=== PATIENT | female | born 1940 | race Hispanic/Latino ===

== ENCOUNTER 2017-05-29 18:27 | Inpatient (IN) | payer MEDICARE, OTHER ==
[~2017-05-29] VITALS: Ht 154.9 cm; Wt 57.6 kg
[~2017-05-29 18:27] MED LIST: AMLO5TAB2 PO; ASPI81TA40 PO; CALC-190 PO; DOXA4TAB3 PO; FOLI0.8T2 PO; GABA-529 PO; LOVA20TA3 PO; METO25TA6 PO; PANT40TA25 PO
[2017-05-29 18:58] LABS: BASOPHILS % (AUTO) 0.3 % (0.0-5.0); EOSINOPHILS % (AUTO) 2.4 % (0.0-8.0); HEMATOCRIT 27.5 % (36-48); LYMPHOCYTES % (AUTO) 4.7 % (21.0-51.0); MEAN CORPUSCULAR HEMOGLOBIN 32.4 pg (27.0-33.0); MEAN CORPUSCULAR HGB CONC 34.8 g/dL (32.0-36.0); MEAN CORPUSCULAR VOLUME 93.1 fL (79-99); MONOCYTES % (AUTO) 5.6 % (3.0-13.0); PLATELET COUNT (AUTO) 72 K/uL (130-400); RED BLOOD CELL COUNT(AUTO) 2.95 MIL/uL (4.00-5.50); RED CELL DISTRIBUTION WIDTH 17.9 % (11.0-15.5)
[2017-05-29 19:08] LABS: CREATININE 6.8 mg/dL (0.5-1.5); POTASSIUM 4.4 mmol/L (3.5-5.1)
[2017-05-29 19:13] LABS: ALBUMIN 3.1 g/dL (3.5-5.0); BILIRUBIN,TOTAL 0.8 mg/dL (0.2-1.0); TOTAL PROTEIN, SERUM 7.1 g/dL (6.0-8.3)
[2017-05-29] MEDS ORDERED: ACETAMINOPHEN 325 MG TAB ONE (19:15)
[2017-05-29] MEDS ORDERED: IPRATROPIUM/ALBUTEROL SULFATE 3 ML SOLUTION IH ONE (19:24)
[2017-05-29] MEDS ORDERED: AZITHROMYCIN 500MG+NS 250ML 250 ML IV ONE (20:45)
[2017-05-30] MEDS ORDERED: ONDANSETRON HCL 4 MG/2 ML VIAL IV PRN (02:15)
[2017-05-30] MEDS ORDERED: HYDRALAZINE HCL 20 MG/ML VIAL IV PRN (02:15)
[2017-05-30] MEDS: AZITHROMYCIN 500MG+NS 250ML 250 ML IV SCH (03:00)
[2017-05-30 04:22] LABS: BASOPHILS % (AUTO) 0.8 % (0.0-5.0); EOSINOPHILS % (AUTO) 2.7 % (0.0-8.0); HEMATOCRIT 29.2 % (36-48); LYMPHOCYTES % (AUTO) 12.8 % (21.0-51.0); MEAN CORPUSCULAR HEMOGLOBIN 31.5 pg (27.0-33.0); MEAN CORPUSCULAR HGB CONC 33.8 g/dL (32.0-36.0); MEAN CORPUSCULAR VOLUME 93.2 fL (79-99); MONOCYTES % (AUTO) 3.9 % (3.0-13.0); NEUTROPHILS % (AUTO) 79.8 % (40.0-77.0); PLATELET COUNT (AUTO) 60 K/uL (130-400); RED BLOOD CELL COUNT(AUTO) 3.13 MIL/uL (4.00-5.50); RED CELL DISTRIBUTION WIDTH 17.7 % (11.0-15.5); WHITE BLOOD COUNT (AUTO) 4.9 K/uL (4.8-10.8)
[2017-05-30 04:41] LABS: CREATININE 6.8 mg/dL (0.5-1.5); POTASSIUM 4.3 mmol/L (3.5-5.1)
[2017-05-30] MEDS ORDERED: IPRATROPIUM/ALBUTEROL SULFATE 3 ML SOLUTION IH ONE ×2 (05:56→10:12)
[2017-05-30] MEDS: HEPARIN SODIUM 5000UNIT/ML 1ML VIAL SQ SCH ×3 (06:00→21:22)
[2017-05-30] MEDS: IPRATROPIUM/ALBUTEROL SULFATE 3 ML SOLUTION IH SCH ×4 (06:03→22:00)
[2017-05-30] MEDS ORDERED: GUAIFENESIN-DM 200/20 MG 10 ML ONE (06:59)
[2017-05-30] MEDS ORDERED: FAMOTIDINE 20MG TAB 20 MG TAB PO SCH (09:00)
[2017-05-30] MEDS ORDERED: HEPARIN SODIUM 5000UNIT/ML 1ML VIAL ONE ×2 (09:32→16:16)
[2017-05-30] MEDS ORDERED: FAMOTIDINE 20MG TAB 20 MG TAB ONE (09:32)
[2017-05-30 17:21] VITALS: BP 138/66
[2017-05-30] MEDS: GUAIFENESIN-DM 200/20 MG 10 ML PO PRN ×2 (18:01→23:45)
[2017-05-30 19:00] VITALS: BP 106/52
[2017-05-30] MEDS ORDERED: 0.9% SODIUM CHLORIDE 250 ML IV BAG IV PRN (19:00)
[2017-05-30] MEDS ORDERED: SODIUM CHLORIDE 0.9% 1000ML 1,000 ML IV PRN (19:00)
[2017-05-30] MEDS ORDERED: ALBUMIN (HUMAN) 25% 100 ML IV PRN (19:00)
[2017-05-30] MEDS: ACETAMINOPHEN 325 MG TAB PO PRN (19:05)
[2017-05-30] MEDS ORDERED: METOPROLOL TARTRATE 25 MG TAB PO SCH (21:00)
[2017-05-30] MEDS: EPOETIN ALFA 3,000 UNIT/ML ML SQ NR (21:21)
[2017-05-30] MEDS ORDERED: IPRATROPIUM 0.5 MG/2.5 ML INH IH ONE (22:56)
[2017-05-30] MEDS: IPRATROPIUM 0.5 MG/2.5 ML INH IH SCH (22:58)
[2017-05-30 23:00] VITALS: BP 103/52
[2017-05-31] MEDS: IPRATROPIUM 0.5 MG/2.5 ML INH IH SCH ×6 (02:43→22:13)
[2017-05-31] MEDS: AZITHROMYCIN 500MG+NS 250ML 250 ML IV SCH (03:12)
[2017-05-31 04:23] VITALS: BP 95/50
[2017-05-31 04:44] LABS: HEMATOCRIT 29.6 % (36-48); MEAN CORPUSCULAR HEMOGLOBIN 31.6 pg (27.0-33.0); MEAN CORPUSCULAR VOLUME 92.9 fL (79-99); PLATELET COUNT (AUTO) 50 K/uL (130-400); RED BLOOD CELL COUNT(AUTO) 3.19 MIL/uL (4.00-5.50); RED CELL DISTRIBUTION WIDTH 17.9 % (11.0-15.5)
[2017-05-31] MEDS: GUAIFENESIN-DM 200/20 MG 10 ML PO PRN (05:01)
[2017-05-31 05:02] LABS: CREATININE 4.8 mg/dL (0.5-1.5); PHOSPHORUS 3.2 mg/dL (2.5-4.9); POTASSIUM 4.3 mmol/L (3.5-5.1)
[2017-05-31] MEDS: HEPARIN SODIUM 5000UNIT/ML 1ML VIAL SQ SCH ×2 (05:02→13:21)
[2017-05-31] MEDS: ACETAMINOPHEN 325 MG TAB PO PRN (05:02)
[2017-05-31 05:41] LABS: BAND NEUTROPHILS % (MANUAL) 5 % (0-2); BASOPHILS % (MANUAL) 5 % (0-2); EOSINOPHILS % (MANUAL) 4 % (1-6); LYMPHOCYTES % (MANUAL) 23 % (22-44); MONOCYTES % (MANUAL) 5 % (2-9); SEGMENTED NEUTROPHILS % 58 % (40-70)
[2017-05-31 05:42] LABS: MAN.DIFF COMMENT-IMPRESSION MANUAL DIFFERENTIAL; PLATELET MORPHOLOGY COMMENT DECREASED
[2017-05-31 07:35] VITALS: BP 96/59
[2017-05-31] MEDS ORDERED: AMLODIPINE BESYLATE 5 MG TAB PO SCH (09:00)
[2017-05-31] MEDS: Lovastatin 20 MG PO SCH (09:00)
[2017-05-31] MEDS: FOLIC ACID/VITAMIN B COMP W-C 1 MG CAPSULE PO SCH (10:49)
[2017-05-31] MEDS: GABAPENTIN 100 MG CAPSULE PO SCH (10:49)
[2017-05-31] MEDS: PANTOPRAZOLE SODIUM 40 MG TABLET.DR PO SCH (10:49)
[2017-05-31] MEDS: ASPIRIN 81 MG EC TAB PO SCH (10:49)
[2017-05-31 12:00] VITALS: BP 94/48
[2017-05-31] MEDS: EPOETIN ALFA 3,000 UNIT/ML ML SQ NR (13:20)
[2017-05-31 16:00] VITALS: BP 95/48
[2017-05-31 20:00] VITALS: BP 112/52
[2017-06-01] VITALS: BP 120/64
[2017-06-01] MEDS: IPRATROPIUM 0.5 MG/2.5 ML INH IH SCH ×4 (02:00→14:09)
[2017-06-01] MEDS: AZITHROMYCIN 500MG+NS 250ML 250 ML IV SCH (03:06)
[2017-06-01 04:00] VITALS: BP 112/75
[2017-06-01] MEDS ORDERED: EPOETIN ALFA 3,000 UNIT/ML ML SQ SCH (06:17)
[2017-06-01 08:00] VITALS: BP 135/70
[2017-06-01] MEDS: Lovastatin 20 MG PO SCH (09:00)
[2017-06-01] MEDS: GABAPENTIN 100 MG CAPSULE PO SCH (10:02)
[2017-06-01] MEDS: PANTOPRAZOLE SODIUM 40 MG TABLET.DR PO SCH (10:02)
[2017-06-01] MEDS: FOLIC ACID/VITAMIN B COMP W-C 1 MG CAPSULE PO SCH (10:02)
[2017-06-01] MEDS: ASPIRIN 81 MG EC TAB PO SCH (10:02)
[2017-06-01 11:30] VITALS: BP 122/61
[2017-06-01] MEDS ORDERED: AZIT250T9 PO (13:20)
== END 2017-06-01 16:35 | disposition home or self-care (01) | DRG 193 ==
LOC: EDH 18:27 → EDHIP 05-30 02:14 → 3CH 05-30 17:14
PROVIDERS: ADMIT Family Medicine; ATTEND Family Medicine
PROC: 5A1D70Z Performance of Urinary Filtration, Intermittent, Less than 6 Hours Per Day (ICD-10-PCS; principal; 2017-05-30)
PROC: 5A1D70Z Performance of Urinary Filtration, Intermittent, Less than 6 Hours Per Day (ICD-10-PCS; 2017-06-01)
DX: J18.9 Pneumonia, unspecified organism (principal); N18.6 End stage renal disease; E87.2 Acidosis; I12.0 Hypertensive chronic kidney disease with stage 5 chronic kidney disease or end stage renal disease; Q61.3 Polycystic kidney, unspecified; Z94.0 Kidney transplant status; Z72.0 Tobacco use; Z82.71 Family history of polycystic kidney; Z90.710 Acquired absence of both cervix and uterus; Z99.2 Dependence on renal dialysis; Z88.1 Allergy status to other antibiotic agents; Z98.51 Tubal ligation status
CPT/HCPCS: 36415; 71046; 80048; 80053; 82948; 83605; 84100; 85025; 87040; 87804; 90935; 94640; 94664; 99291; J0456; J1644; J7030

== ENCOUNTER 2017-07-21 23:27 | Inpatient (IN) | payer OTHER ==
[~2017-07-21] VITALS: Ht 152.4 cm; Wt 54.8 kg
[~2017-07-21 23:27] MED LIST changes: +AZIT250T9 PO
[2017-07-22 01:26] LABS: EOSINOPHILS % (AUTO) 6.9 % (0.0-8.0); HEMATOCRIT 28.7 % (36-48); LYMPHOCYTES % (AUTO) 14.5 % (21.0-51.0); MEAN CORPUSCULAR HEMOGLOBIN 31.9 pg (27.0-33.0); MEAN CORPUSCULAR HGB CONC 34.2 g/dL (32.0-36.0); MEAN CORPUSCULAR VOLUME 93.1 fL (79-99); MONOCYTES % (AUTO) 12.6 % (3.0-13.0); PLATELET COUNT (AUTO) 63 K/uL (130-400); RED BLOOD CELL COUNT(AUTO) 3.08 MIL/uL (4.00-5.50); RED CELL DISTRIBUTION WIDTH 16.5 % (11.0-15.5); WHITE BLOOD COUNT (AUTO) 3.9 K/uL (4.8-10.8)
[2017-07-22 01:41] LABS: CREATININE 5.8 mg/dL (0.5-1.5); POTASSIUM 4.1 mmol/L (3.5-5.1)
[2017-07-22 01:46] LABS: ALBUMIN 2.8 g/dL (3.5-5.0); BILIRUBIN,TOTAL 0.6 mg/dL (0.2-1.0); TOTAL PROTEIN, SERUM 6.4 g/dL (6.0-8.3)
[2017-07-22] MEDS ORDERED: HYDRALAZINE HCL 20 MG/ML VIAL IV PRN (03:45)
[2017-07-22] MEDS ORDERED: OSELTAMIVIR PHOSPHATE 75 MG CAP PO SCH (09:00)
[2017-07-22 16:49] VITALS: BP 128/59
[2017-07-22] MEDS ORDERED: COMPOUND PO MISCELLANEOUS 1 EACH MISC MISC PRN (17:00)
[2017-07-22] MEDS ORDERED: CALC667C10 PEG (17:22)
[2017-07-22] MEDS ORDERED: VITA400C70 PO (17:22)
[2017-07-22] MEDS: OSELTAMIVIR SUSP 15 MG/ML (6 CAPS/29ML) PO SCH ×2 (18:29)
[2017-07-22 19:15] VITALS: BP 120/65
[2017-07-23 00:05] VITALS: BP 117/57
[2017-07-23 03:15] VITALS: BP 115/54
[2017-07-23 06:00] LABS: HEMATOCRIT 28.2 % (36-48); MEAN CORPUSCULAR HGB CONC 34.4 g/dL (32.0-36.0); MEAN CORPUSCULAR VOLUME 92.9 fL (79-99); NUCLEATED RED BLOOD CELLS 0.1 % (0.0-0.19); PLATELET COUNT (AUTO) 74 K/uL (130-400); RED BLOOD CELL COUNT(AUTO) 3.04 MIL/uL (4.00-5.50); RED CELL DISTRIBUTION WIDTH 16.3 % (11.0-15.5); WHITE BLOOD COUNT (AUTO) 3.4 K/uL (4.8-10.8)
[2017-07-23 06:28] LABS: ALBUMIN 2.6 g/dL (3.5-5.0); BILIRUBIN,TOTAL 0.6 mg/dL (0.2-1.0); CREATININE 7.1 mg/dL (0.5-1.5); MAGNESIUM 2.2 mg/dL (1.80-2.40); PHOSPHORUS 4.5 mg/dL (2.5-4.9); POTASSIUM 4.2 mmol/L (3.5-5.1); THYROID STIMULATING HORMONE 1.91 uIU/mL (0.36-3.74); TOTAL PROTEIN, SERUM 6.2 g/dL (6.0-8.3); URIC ACID 5.1 mg/dL (2.6-7.2)
[2017-07-23 07:58] VITALS: BP 125/71
[2017-07-23] MEDS: FOLIC ACID/VITAMIN B COMP W-C 1 MG CAPSULE PO SCH (09:27)
[2017-07-23 11:30] VITALS: BP 115/47
[2017-07-23 16:00] VITALS: BP 129/59
[2017-07-23] MEDS: CALCIUM ACETATE 667 MG CAPSULE PO SCH (17:00)
[2017-07-23 19:10] VITALS: BP 107/50
[2017-07-23] MEDS ORDERED: METOPROLOL TARTRATE 25 MG TAB PO SCH (21:00)
[2017-07-23] MEDS: ATORVASTATIN CALCIUM 10 MG TABLET PO SCH (23:12)
[2017-07-24] VITALS (7 sets, daily range): BP systolic 102–133; BP diastolic 55–68
[2017-07-24 05:56] LABS: HEMATOCRIT 32.1 % (36-48); MEAN CORPUSCULAR HEMOGLOBIN 31.1 pg (27.0-33.0); MEAN CORPUSCULAR HGB CONC 33.2 g/dL (32.0-36.0); MEAN CORPUSCULAR VOLUME 93.7 fL (79-99); PLATELET COUNT (AUTO) 91 K/uL (130-400); RED BLOOD CELL COUNT(AUTO) 3.43 MIL/uL (4.00-5.50); RED CELL DISTRIBUTION WIDTH 16.5 % (11.0-15.5); WHITE BLOOD COUNT (AUTO) 4.6 K/uL (4.8-10.8)
[2017-07-24 06:20] LABS: PHOSPHORUS 4.2 mg/dL (2.5-4.9); POTASSIUM 4.6 mmol/L (3.5-5.1)
[2017-07-24 06:23] LABS: CREATININE 8.1 mg/dL (0.5-1.5)
[2017-07-24] MEDS: CALCIUM ACETATE 667 MG CAPSULE PO SCH ×3 (08:00→17:00)
[2017-07-24] MEDS: ASPIRIN 81 MG EC TAB PO SCH (08:00)
[2017-07-24] MEDS ORDERED: ASPIRIN 81 MG EC TAB PO SCH (09:00)
[2017-07-24] MEDS: GABAPENTIN 100 MG CAPSULE PO SCH (09:16)
[2017-07-24] MEDS: FOLIC ACID/VITAMIN B COMP W-C 1 MG CAPSULE PO SCH (09:16)
[2017-07-24] MEDS: DOXAZOSIN MESYLATE 2 MG TABLET PO SCH (09:16)
[2017-07-24] MEDS: VITAMIN E 400 UNIT CAPSULE PO SCH (09:16)
[2017-07-24] MEDS: VITAMIN B COMPLEX 1 CAPSULE PO SCH (09:16)
[2017-07-24] MEDS: PANTOPRAZOLE SODIUM 40 MG TABLET.DR PO SCH (09:16)
[2017-07-24] MEDS: LOPERAMIDE HCL 2 MG CAP PO PRN ×2 (11:51→18:15)
[2017-07-24] MEDS: OSELTAMIVIR SUSP 15 MG/ML (6 CAPS/29ML) PO SCH ×2 (17:37)
[2017-07-24] MEDS: CARVEDILOL 3.125 MG TABLET PO SCH (19:58)
[2017-07-24] MEDS: ATORVASTATIN CALCIUM 10 MG TABLET PO SCH (19:58)
[2017-07-24] MEDS: LOSARTAN 50 MG TABLET PO SCH (19:58)
[2017-07-25 03:00] VITALS: BP 112/55
[2017-07-25 03:52] LABS: HEMATOCRIT 30.9 % (36-48); MEAN CORPUSCULAR HGB CONC 34.2 g/dL (32.0-36.0); MEAN CORPUSCULAR VOLUME 93.4 fL (79-99); NUCLEATED RED BLOOD CELLS 0.2 % (0.0-0.19); PLATELET COUNT (AUTO) 81 K/uL (130-400); RED BLOOD CELL COUNT(AUTO) 3.31 MIL/uL (4.00-5.50); RED CELL DISTRIBUTION WIDTH 16.2 % (11.0-15.5); WHITE BLOOD COUNT (AUTO) 3.6 K/uL (4.8-10.8)
[2017-07-25 04:33] LABS: POTASSIUM 4.3 mmol/L (3.5-5.1)
[2017-07-25 04:40] LABS: CREATININE 9.2 mg/dL (0.5-1.5)
[2017-07-25] MEDS: ASPIRIN 81 MG EC TAB PO SCH (08:00)
[2017-07-25] MEDS: CALCIUM ACETATE 667 MG CAPSULE PO SCH ×3 (08:00→17:49)
[2017-07-25] MEDS: VITAMIN B COMPLEX 1 CAPSULE PO SCH (09:00)
[2017-07-25] MEDS: VITAMIN E 400 UNIT CAPSULE PO SCH (09:00)
[2017-07-25] MEDS: FOLIC ACID/VITAMIN B COMP W-C 1 MG CAPSULE PO SCH (09:00)
[2017-07-25] MEDS: PANTOPRAZOLE SODIUM 40 MG TABLET.DR PO SCH (09:00)
[2017-07-25] MEDS: GABAPENTIN 100 MG CAPSULE PO SCH (09:00)
[2017-07-25] MEDS: DOXAZOSIN MESYLATE 2 MG TABLET PO SCH (09:00)
[2017-07-25] MEDS: CARVEDILOL 3.125 MG TABLET PO SCH ×2 (09:00→22:45)
[2017-07-25 09:01] VITALS: BP 114/63
[2017-07-25 11:47] VITALS: BP 108/48
[2017-07-25 16:32] VITALS: BP 123/54
[2017-07-25] MEDS: LOPERAMIDE HCL 2 MG CAP PO PRN (17:49)
[2017-07-25 19:00] VITALS: BP 144/59
[2017-07-25] MEDS: LOSARTAN 50 MG TABLET PO SCH (22:45)
[2017-07-25] MEDS: ATORVASTATIN CALCIUM 10 MG TABLET PO SCH (22:45)
[2017-07-25 23:00] VITALS: BP 103/42
[2017-07-26 03:00] VITALS: BP 103/56
[2017-07-26 08:00] VITALS: BP 126/64
[2017-07-26] MEDS: VITAMIN E 400 UNIT CAPSULE PO SCH (08:01)
[2017-07-26] MEDS: VITAMIN B COMPLEX 1 CAPSULE PO SCH (08:01)
[2017-07-26] MEDS: FOLIC ACID/VITAMIN B COMP W-C 1 MG CAPSULE PO SCH (08:01)
[2017-07-26] MEDS: PANTOPRAZOLE SODIUM 40 MG TABLET.DR PO SCH (08:01)
[2017-07-26] MEDS: DOXAZOSIN MESYLATE 2 MG TABLET PO SCH (08:01)
[2017-07-26] MEDS: GABAPENTIN 100 MG CAPSULE PO SCH (08:02)
[2017-07-26] MEDS: CALCIUM ACETATE 667 MG CAPSULE PO SCH ×2 (08:02→11:29)
[2017-07-26] MEDS: CARVEDILOL 3.125 MG TABLET PO SCH (08:03)
[2017-07-26] MEDS ORDERED: ASPIRIN 81MG TAB.CHEW PO SCH (09:00)
[2017-07-26 12:00] VITALS: BP 117/52
== END 2017-07-26 14:45 | disposition home or self-care (01) | DRG 291 ==
LOC: EDH 23:27 → OBSVTOIN 07-22 03:22 → EDHIP 07-22 03:22 → 3AH 07-22 16:28
PROVIDERS: ADMIT Internal Medicine Critical Care Medicine; ATTEND Internal Medicine Critical Care Medicine
PROC: 5A1D70Z Performance of Urinary Filtration, Intermittent, Less than 6 Hours Per Day (ICD-10-PCS; principal; 2017-07-25)
DX: I13.2 Hypertensive heart and chronic kidney disease with heart failure and with stage 5 chronic kidney disease, or end stage renal disease (principal); N18.6 End stage renal disease; T86.12 Kidney transplant failure; E11.22 Type 2 diabetes mellitus with diabetic chronic kidney disease; D69.6 Thrombocytopenia, unspecified; E11.42 Type 2 diabetes mellitus with diabetic polyneuropathy; E11.51 Type 2 diabetes mellitus with diabetic peripheral angiopathy without gangrene; I50.41 Acute combined systolic (congestive) and diastolic (congestive) heart failure; I42.0 Dilated cardiomyopathy; Z99.2 Dependence on renal dialysis; Z90.5 Acquired absence of kidney; E66.9 Obesity, unspecified; E78.5 Hyperlipidemia, unspecified; D64.9 Anemia, unspecified; I08.3 Combined rheumatic disorders of mitral, aortic and tricuspid valves; Z87.442 Personal history of urinary calculi; Z90.710 Acquired absence of both cervix and uterus; Z91.15 Patient's noncompliance with renal dialysis; Z68.23 Body mass index [BMI] 23.0-23.9, adult; Z88.0 Allergy status to penicillin; Z88.8 Allergy status to other drugs, medicaments and biological substances
CPT/HCPCS: 36415; 71045; 80048; 80053; 83735; 84100; 84443; 84484; 84550; 85025; 85027; 90935; 93005; 93306; 99291